=== PATIENT | male | born 1980 | race Caucasian/White ===

== ENCOUNTER 2016-11-10 18:03 | Observation (INO) | payer OTHER ==
[2016-11-10] MEDS ORDERED: NITROGLYCERIN OINT 1 INCH/GM PACKET TOPICAL STA (18:20)
[2016-11-10] MEDS ORDERED: LORazepam 2 MG/ML SYRINGE IV STA (18:20)
--- NOTE | 2016-11-10 18:23 | ED ---
General Adult HPI - General Chief complaint: Chest Pain Stated complaint: Chest Pain Time Seen by Provider: 11/10/16 18:05 Source: patient, RN notes reviewed Mode of arrival: EMS Limitations: no limitations - History of Present Illness Initial comments: This is a 36-year-old male who presents emergency department with past medical history significant for alcoholism and drug use hypertension and he states he's had a heart attack about 6 years ago. Patient comes in today because he started having chest pain while he was [facility] patient states he broke out in a sweat and then he vomited times one. Since that time he continues to have chest pain on the left side of his chest and he is short of breath. Patient denies any nausea currently. Patient states he has no lightheadedness or dizziness. Patient denies any recent fever chills or cough. Patient states since the vomiting has a little bit of left upper quadrant abdominal pain. - Related Data Home Medications Medication Instructions Recorded Confirmed Acetaminophen [Tylenol] 650 mg PO Q4H PRN MDD 6 tablets 11/10/16 11/10/16 Calcium 1000mg/Magnesium 500mg 1 tab PO TID PRN 11/10/16 11/10/16 Chlorpheniramine Maleate 4 mg PO Q4H PRN MDD 4 tablets 11/10/16 11/10/16 [Chlor-Trimeton] Ibuprofen [Motrin] 600 mg PO Q6HR PRN 11/10/16 11/10/16 Multivitamins, Thera [Multivitamin 1 tab PO DAILY 11/10/16 11/10/16 (formulary)] Ondansetron HCl [Zofran] 8 mg PO Q6H PRN 11/10/16 11/10/16 Ondansetron [Zofran] 4 mg IM Q6H PRN 11/10/16 11/10/16 Thiamine [Vitamin B-1] 100 mg PO DAILY 11/10/16 11/10/16 busPIRone HCl [Buspar] 10 mg PO TID PRN 11/10/16 11/10/16 cloNIDine HCL [Catapres] 0.1 mg PO Q4H PRN 11/10/16 11/10/16 traZODone HCL 50 mg PO HS PRN 11/10/16 11/10/16 Allergies Allergy/AdvReac Type Severity Reaction Status Date / Time No Known Allergies Allergy Verified 11/10/16 18:06 Review of Systems ROS Statement: Those systems with pertinent positive or pertinent negative responses have been documented in the HPI. ROS Other: All systems not noted in ROS Statement are negative. Past Medical History Past Medical History: Hypertension, Myocardial Infarction ([place]) Additional Past Medical History / Comment(s): +ETOH abuse, pericarditis History of Any Multi-Drug Resistant Organisms: None Reported Additional Past Surgical History / Comment(s): finger surgery Past Psychological History: No Psychological Hx Reported Smoking Status: Current every day smoker Past Alcohol Use History: Abuse, Heavy Past Drug Use History: Cocaine, Prescription Drug Abuse General Exam - General Exam Comments Initial Comments: GENERAL: Patient is well-developed and well-nourished. Patient is nontoxic and well- hydrated and is in mild distress. ENT: Neck is soft and supple. No significant lymphadenopathy is noted. Oropharynx is clear. Moist mucous membranes. Neck has full range of motion without eliciting any pain. EYES: The sclera were anicteric and conjunctiva were pink and moist. Extraocular movements were intact and pupils were equal round and reactive to light. Eyelids were unremarkable. PULMONARY: Unlabored respirations. Good breath sounds bilaterally. No audible rales rhonchi or wheezing was noted. CARDIOVASCULAR: Patient is tachycardic at about 120 beats a minute ABDOMEN: Soft and nontender with normal bowel sounds. No palpable organomegaly was noted. There is no palpable pulsatile mass. SKIN: Skin is clear with no lesions or rashes and otherwise unremarkable. NEUROLOGIC: Patient is alert and oriented x3. Cranial nerves II through XII are grossly intact. Motor and sensory are also intact. Normal speech, volume and content. Symmetrical smile. MUSCULOSKELETAL: Normal extremities with adequate strength and full range of motion. No lower extremity swelling or edema. No calf tenderness. LYMPHATICS: No significant lymphadenopathy is noted PSYCHIATRIC: Patient seems very anxious. Patient is almost tearful when he is given me his history. Limitations: no limitations Course Vital Signs 11/10/16 11/10/16 11/10/16 18:07 18:15 18:54 Temperature 97.4 F L Pulse Rate 129 H 93 Pulse Rate [ 115 H Creative Consultant ] Respiratory 20 18 Rate Blood Pressure 182/88 131/75 O2 Sat by Pulse 99 97 Oximetry Medical Decision Making - Medical Decision Making EKG shows sinus tachycardia at 135 bpm FL interval is 132 QRS is 82 QT interval 302 QTC is 453. Patient's EKG shows no ST segment elevation or depression. Chest x-ray shows no acute abnormality. I gave the patient 2 of Ativan he relaxed his heart rate was under 100 and was no longer anxious or in any distress. I spoke with christoph and she accepted the admission I wrote admitting orders consult cardiology. - Lab Data Result diagrams: 11/10/16 18:15 11/10/16 18:15 Lab Results 11/10/16 11/10/16 11/10/16 Range/Units 18:15 18:15 18:15 WBC 12.5 H (3.8-10.6) k/uL RBC 5.58 (4.30-5.90) m/uL Hgb 17.0 (13.0-17.5) gm/dL Hct 49.6 (39.0-53.0) % MCV 88.9 (80.0-100.0) fL MCH 30.5 (25.0-35.0) pg MCHC 34.3 (31.0-37.0) g/dL RDW 13.4 (11.5-15.5) % Plt Count 397 (150-450) k/uL Neutrophils % 58 % Lymphocytes % 30 % Monocytes % 8 % Eosinophils % 1 % Basophils % 0 % Neutrophils # 7.3 (1.3-7.7) k/uL Lymphocytes # 3.8 (1.0-4.8) k/uL Monocytes # 1.0 (0-1.0) k/uL Eosinophils # 0.2 (0-0.7) k/uL Basophils # 0.1 (0-0.2) k/uL PT (9.0-12.0) sec INR (<1.2) APTT (22.0-30.0) sec Sodium 138 (137-145) mmol/L Potassium 4.5 (3.5-5.1) mmol/L Chloride 100 (98-107) mmol/L Carbon Dioxide 22 (22-30) mmol/L Anion Gap 16 mmol/L BUN 13 (9-20) mg/dL Creatinine 0.85 (0.66-1.25) mg/dL Est GFR (MDRD) Af Amer >60 (>60 ml/min/1.73 sqM) Est GFR (MDRD) Non-Af >60 (>60 ml/min/1.73 sqM) Glucose 96 (74-99) mg/dL Calcium 10.3 H (8.4-10.2) mg/dL Magnesium 1.7 (1.6-2.3) mg/dL Total Bilirubin 0.8 (0.2-1.3) mg/dL AST 33 (17-59) U/L ALT 67 (21-72) U/L Alkaline Phosphatase 90 (38-126) U/L Total Creatine Kinase 59 (55-170) U/L CK-MB (CK-2) 0.3 (0.0-2.4) ng/mL CK-MB (CK-2) Rel Index 0.5 Troponin I <0.012 (0.000-0.034) ng/mL Total Protein 7.7 (6.3-8.2) g/dL Albumin 4.8 (3.5-5.0) g/dL 11/10/16 Range/Units 18:15 WBC (3.8-10.6) k/uL RBC (4.30-5.90) m/uL Hgb (13.0-17.5) gm/dL Hct (39.0-53.0) % MCV (80.0-100.0) fL MCH (25.0-35.0) pg MCHC (31.0-37.0) g/dL RDW (11.5-15.5) % Plt Count (150-450) k/uL Neutrophils % % Lymphocytes % % Monocytes % % Eosinophils % % Basophils % % Neutrophils # (1.3-7.7) k/uL Lymphocytes # (1.0-4.8) k/uL Monocytes # (0-1.0) k/uL Eosinophils # (0-0.7) k/uL Basophils # (0-0.2) k/uL PT 10.4 (9.0-12.0) sec INR 1.0 (<1.2) APTT 23.2 (22.0-30.0) sec Sodium (137-145) mmol/L Potassium (3.5-5.1) mmol/L Chloride (98-107) mmol/L Carbon Dioxide (22-30) mmol/L Anion Gap mmol/L BUN (9-20) mg/dL Creatinine (0.66-1.25) mg/dL Est GFR (MDRD) Af Amer (>60 ml/min/1.73 sqM) Est GFR (MDRD) Non-Af (>60 ml/min/1.73 sqM) Glucose (74-99) mg/dL Calcium (8.4-10.2) mg/dL Magnesium (1.6-2.3) mg/dL Total Bilirubin (0.2-1.3) mg/dL AST (17-59) U/L ALT (21-72) U/L Alkaline Phosphatase (38-126) U/L Total Creatine Kinase (55-170) U/L CK-MB (CK-2) (0.0-2.4) ng/mL CK-MB (CK-2) Rel Index Troponin I (0.000-0.034) ng/mL Total Protein (6.3-8.2) g/dL Albumin (3.5-5.0) g/dL Disposition Clinical Impression: Chest pain, Alcoholism, Anxiety Disposition: ADMITTED IP TO THIS HOSP Referrals: None,Stated [REFERRING] - 1-2 days Time of Disposition: 19:34
[2016-11-10 18:35] LABS: Basophils # (A) 0.1 k/uL (0-0.2); Basophils % (A) 0 %; CH 31.5; CHCM 35.5; Eosinophils # (A) 0.2 k/uL (0-0.7); Eosinophils % (A) 1 %; HCT 49.6 % (39.0-53.0); HDW 2.36; Luc # (Auto) 0.27; Luc % (Auto) 2; Lymphocytes # (A) 3.8 k/uL (1.0-4.8); Lymphocytes % (A) 30 %; MCH 30.5 pg (25.0-35.0); MCHC 34.3 g/dL (31.0-37.0); MCV 88.9 fL (80.0-100.0); Mean Platelet Volume 7.2; Monocytes % (A) 8 %; Neutrophils # (A) 7.3 k/uL (1.3-7.7); Neutrophils % (A) 58 %; RBC 5.58 m/uL (4.30-5.90); RDW 13.4 % (11.5-15.5); WBC 12.5 k/uL (3.8-10.6); WBC (Perox) 12.01
[2016-11-10 18:46] LABS: Partial Thromboplastin Time 23.2 sec (22.0-30.0); Prothrombin Time 10.4 sec (9.0-12.0)
[2016-11-10 18:48] LABS: ALT 67 U/L (21-72); AST 33 U/L (17-59); Alkaline Phosphatase 90 U/L (38-126); Anion Gap 16 mmol/L; Blood Urea Nitrogen 13 mg/dL (9-20); Calcium 10.3 mg/dL (8.4-10.2); Carbon Dioxide 22 mmol/L (22-30); Chloride 100 mmol/L (98-107); Glucose 96 mg/dL (74-99); Magnesium 1.7 mg/dL (1.6-2.3); Non-African American GFR(MDRD) >60 (>60 ml/min/1.73 sqM); Potassium 4.5 mmol/L (3.5-5.1); Sodium 138 mmol/L (137-145); Total Bilirubin 0.8 mg/dL (0.2-1.3); Total Protein 7.7 g/dL (6.3-8.2)
[2016-11-10 18:57] LABS: Creatine Kinase 59 U/L (55-170)
[2016-11-10 19:10] LABS: Creatine Kinase MB 0.3 ng/mL (0.0-2.4); Troponin I <0.012 ng/mL (0.000-0.034)
[2016-11-10] MEDS ORDERED: NITROGLYCERIN SL TABS 0.4 MG TAB SUBLINGUAL PRN (19:34)
--- NOTE | 2016-11-10 19:41 | XR ---
EXAMINATION TYPE: XR chest 2V DATE OF EXAM: 11/10/2016 COMPARISON: NONE HISTORY: Pain TECHNIQUE: Frontal and lateral views of the chest are obtained. FINDINGS: There is no focal air space opacity, pleural effusion, or pneumothorax seen. The cardiac silhouette size is within normal limits. The osseous structures are intact. IMPRESSION: No acute cardiopulmonary process.
[2016-11-10] MEDS ORDERED: LORazepam 2 MG/ML SYRINGE IV PRN (20:00)
[2016-11-10] MEDS ORDERED: IBUPROFEN 600 MG TAB PO PRN (21:36)
[2016-11-10] MEDS: NITROGLYCERIN OINT 1 INCH/GM PACKET TOPICAL SCH (23:45)
[2016-11-11 00:27] LABS: Creatine Kinase 57 U/L (55-170)
[2016-11-11 00:40] LABS: Creatine Kinase MB 0.3 ng/mL (0.0-2.4); Troponin I <0.012 ng/mL (0.000-0.034)
[2016-11-11] MEDS: NITROGLYCERIN OINT 1 INCH/GM PACKET TOPICAL SCH ×2 (06:07→13:53)
[2016-11-11 06:44] LABS: Cholesterol 218 mg/dL (<200); HDL Cholesterol 32 mg/dL (40-60)
[2016-11-11 07:00] LABS: Creatine Kinase 55 U/L (55-170)
[2016-11-11 07:11] LABS: Creatine Kinase MB 0.2 ng/mL (0.0-2.4); Troponin I <0.012 ng/mL (0.000-0.034)
[2016-11-11 08:05] VITALS: TEMP 98.2
[2016-11-11] MEDS ORDERED: ASPIRIN 325 MG TAB PO SCH (09:00)
[2016-11-11] MEDS ORDERED: MULTIVITAMINS, THERA 1 EACH TAB PO SCH (09:00)
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
[2016-11-11] MEDS ORDERED: PANTOPRAZOLE 40 MG TABLET PO SCH (11:15)
[2016-11-11 11:45] VITALS: BP 141/90; RESP 18
--- NOTE | 2016-11-11 12:14 | ECHOS ---
Referral Reason:chest pain MEASUREMENTS -------- HEIGHT: 188.0 cm WEIGHT: 83.9 kg BP: 125/47 WallScoring: string WallScoring: string WallScoring: string FINDINGS -------- Utilizing the standard Ramses protocol the patient was exercised for 9 minutes, 30 seconds, achieving a maximum heart rate of 165 , which is 90 % of predicted maximal heart rate. There was physiologic heart rate and blood pressure response to exercise. Max Heart Rate: 165 % of Max Predicted Heart Rate: 90 Rest Heart Rate: 93 Rest BP: 125/47 Max BP: 198/69 Mets Achieved: 11.1 The test was stopped because the target heart rate was achieved. This level of exercise represents a good exercise tolerance for age. Sinus rhythm. In response to stress, the ECG showed no ST-T wave changes (see exercise report for details). LV size, wall thickness and systolic function are normal, with an EF of 60%. Echo images were acquired at peak stress which demonstrated appropriate augmentation of all left ventricular segments with slight decrease in cavity size. CONCLUSIONS -------- 1. This level of exercise represents a good exercise tolerance for age. 2. Sinus rhythm. 3. In response to stress, the ECG showed no ST-T wave changes (see exercise report for details). 4. LV size, wall thickness and systolic function are normal, with an EF of 60%. 5. Echo images were acquired at peak stress which demonstrated appropriate augmentation of all left ventricular segments with slight decrease in cavity size. 6. No 2D echocardiographic evidence of inducible ischemia to achieved workload. HAND FORMER HELPER: Anam Nagel RDCS
[2016-11-11 13:24] VITALS: PULSE 78
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
--- NOTE | 2016-11-11 13:34 | P.DS ---
Providers Date of admission: 11/10/16 19:34 Attending physician: Sarah Landa Consults: 11/10/16 19:34 Consult Physician Urgent Consulting Provider: [facility] Consult Reason/Comments: Chest pain Do you want consulting provider notified?: Yes Primary care physician: Physician Nonstaff Hospital Course: Please refer to HPI Plan - Discharge Summary New Discharge Prescriptions: New Omeprazole [PriLOSEC] 40 mg PO AC-BRKFST #14 capsule. Discontinued Ibuprofen [Motrin] 600 mg PO Q6HR PRN PRN Reason: Pain No Action Multivitamins, Thera [Multivitamin (formulary)] 1 tab PO DAILY Discharge Medication List Multivitamins, Thera [Multivitamin (formulary)] 1 tab PO DAILY 11/10/16 [History ] Omeprazole [PriLOSEC] 40 mg PO AC-BRKFST #14 capsule. 11/11/16 [Rx] Follow up Appointment(s)/Referral(s): None,Stated [REFERRING] - 1-2 days Patient Instructions/Handouts: Chest Pain (DC)
--- NOTE | 2016-11-12 15:50 | EST ---
Referral Reason:chest pain MEASUREMENTS -------- HEIGHT: 188.0 cm WEIGHT: 83.9 kg BP: 125/47 FINDINGS -------- Utilizing the standard Ramses protocol the patient was exercised for 9 minutes, 30 seconds, achieving a maximum heart rate of 165 , which is 90 % of predicted maximal heart rate. There was physiologic heart rate and blood pressure response to exercise. Max Heart Rate: 165 % of Max Predicted Heart Rate: 90 Rest Heart Rate: 93 Rest BP: 125/47 Max BP: 198/69 Mets Achieved: 11.1 The test was stopped because the target heart rate was achieved. This level of exercise represents a good exercise tolerance for age. Sinus rhythm. In response to stress, the ECG showed no ST-T wave changes (see exercise report for details). LV size, wall thickness and systolic function are normal, with an EF of 60%. Echo images were acquired at peak stress which demonstrated appropriate augmentation of all left ventricular segments with slight decrease in cavity size. CONCLUSIONS -------- 1. This level of exercise represents a good exercise tolerance for age. 2. Sinus rhythm. 3. In response to stress, the ECG showed no ST-T wave changes (see exercise report for details). 4. LV size, wall thickness and systolic function are normal, with an EF of 60%. 5. Echo images were acquired at peak stress which demonstrated appropriate augmentation of all left ventricular segments with slight decrease in cavity size. 6. No 2D echocardiographic evidence of inducible ischemia to achieved workload. OVERLOCK SEWING MACHINE OPERATOR: Anam Nagel RDCS MTDD
== END 2016-11-11 13:53 | disposition home or self-care (01) ==
LOC: EC 18:03 → 3OBS 19:34
PROVIDERS: ADMIT Hospitalist; ATTEND Hospitalist
DX: R07.89 Other chest pain (principal); R06.02 Shortness of breath; R11.2 Nausea with vomiting, unspecified; I10 Essential (primary) hypertension; I25.2 Old myocardial infarction; F10.20 Alcohol dependence, uncomplicated; F17.200 Nicotine dependence, unspecified, uncomplicated; F41.9 Anxiety disorder, unspecified; Z79.899 Other long term (current) drug therapy; Z82.49 Family history of ischemic heart disease and other diseases of the circulatory system
CPT/HCPCS: 96376; 96374; 99285; 36415; 93005; 93017; 93350; 80061; 80053; 82550 ×2; 82553 ×2; 83735; 84484 ×2; 85025; 85610; 85730; 71020; G0378 ×2; J2060